=== PATIENT | male | born 1960 | race Caucasian/White ===

== ENCOUNTER → 2016-06-24 | Outpatient (CLI) | payer OTHER ==
[~2016-06-24] MED LIST: BACTRIM DS TABL1 TA2 PO; CLARITHROMYCIN500 MG PO; CLINDAMYCIN HC300 MG PO; NO MEDICATIONS; PERCOCET 5-3251 TAB PO
[2016-06-24 12:10] LABS: BASOPHIL# 0.1 X10e3 (0-0.3); BASOPHIL% 0.8 % (0-2.5); EOSINOPHIL# 0.2 X10e3 (0-0.7); EOSINOPHIL% 1.8 % (0.0-7.0); HEMATOCRIT 31.2 % (38.0-50.0); HEMOGLOBIN 10.8 gm/dL (13.0-16.0); LYMPHOCYTE# 0.9 X10e3 (1.0-3.5); LYMPHOCYTE% 9.9 % (17.0-45.0); MEAN CELL VOLUME 104.3 FL (83-96); MEAN CORPUSCULAR HEMOGLOBIN 36.3 PG (28-34); MEAN CORPUSCULAR HGB CONC 34.8 g/dL (30-36); MEAN PLATELET VOLUME 6.4 FL (6.5-11.5); MONOCYTE# 1.2 X10e3 (0-1.0); MONOCYTE% 12.6 % (3.0-12.0); NEUTROPHIL# 6.8 X10e3 (1.5-7.1); NEUTROPHIL% 74.9 % (40-75); PLATELET COUNT 170 X10e3 (140-420); RED BLOOD COUNT 2.99 X10e (3.90-5.60); RED CELL DISTRIBUTION WIDTH 14.7 % (11.0-15.5); WHITE BLOOD COUNT 9.1 X10e3 (4.0-10.5)
[2016-06-24 12:11] LABS: DIFF IND NO
[2016-06-24 12:21] LABS: INR 1.4; PROTHROMBIN TIME (PATIENT) 14.5 SECONDS (9.6-11.5)
[2016-06-24 13:13] LABS: ALBUMIN SERUM 2.1 g/dL (3.5-5.0); ALKALINE PHOSPHATASE 141 U/L (32-92); ALT (SGPT) 25 U/L (10-40); AST (SGOT) 45 U/L (10-42); BILIRUBIN,TOTAL 7.1 mg/dL (0.2-2.0); BLOOD UREA NITROGEN 8 mg/dL (9-23); BUN/CREATININE RATIO 11.42; CALCIUM SERUM 8.2 mg/dL (8.4-10.2); CARBON DIOXIDE 31 mmol/L (22-31); CHLORIDE 90 mmol/L (100-111); CREATININE SERUM 0.7 mg/dL (0.6-1.4); GLOM FILT RATE Estimated ABOVE60 mL/min (>60); GLUCOSE FASTING 255 mg/dL (70-110); POTASSIUM 3.9 mmol/L (3.5-5.1); SODIUM 127 mmol/L (135-145)
== END | disposition home or self-care (01) ==
LOC: CLAB 11:19
PROVIDERS: Internal Medicine
DX: K74.60 Unspecified cirrhosis of liver (principal)
CPT/HCPCS: 80053; 82105; 85025; 85610

== ENCOUNTER → 2016-07-13 | Outpatient (CLI) | payer OTHER ==
[2016-07-13 10:31] LABS: INR 1.5; PROTHROMBIN TIME (PATIENT) 16.8 SECONDS (9.5-12.4)
[2016-07-13 10:54] LABS: ALBUMIN SERUM 2.1 g/dL (3.5-5.0); BILIRUBIN,TOTAL 4.4 mg/dL (0.2-2.0); BUN/CREATININE RATIO 15.71; CALCIUM SERUM 8.3 mg/dL (8.4-10.2); CREATININE SERUM 0.7 mg/dL (0.6-1.4); GLOM FILT RATE Estimated 106.3 mL/min (>60); PROTEIN TOTAL SERUM 6.1 g/dL (6.0-8.3)
== END | disposition home or self-care (01) ==
LOC: SLAB 10:01
PROVIDERS: Internal Medicine
DX: K70.31 Alcoholic cirrhosis of liver with ascites (principal)
CPT/HCPCS: 36415; 80053; 85610

== ENCOUNTER → 2016-07-25 | Outpatient (CLI) | payer OTHER ==
[2016-07-25 10:49] LABS: BASOPHIL# 0.1 X10e3 (0-0.3); EOSINOPHIL# 0.2 X10e3 (0-0.7); EOSINOPHIL% 2.2 % (0.0-7.0); LYMPHOCYTE# 0.9 X10e3 (1.0-3.5); LYMPHOCYTE% 11.9 % (17.0-45.0); MEAN CELL VOLUME 104.1 FL (83-96); MEAN CORPUSCULAR HEMOGLOBIN 36.8 PG (28-34); MEAN CORPUSCULAR HGB CONC 35.4 g/dL (30-36); MEAN PLATELET VOLUME 6.2 FL (6.5-11.5); MONOCYTE# 1.1 X10e3 (0-1.0); MONOCYTE% 14.2 % (3.0-12.0); NEUTROPHIL# 5.4 X10e3 (1.5-7.1); NEUTROPHIL% 70.7 % (40-75); PLATELET COUNT 170 X10e3 (140-420); RED BLOOD COUNT 2.98 X10e (3.90-5.60); RED CELL DISTRIBUTION WIDTH 13.2 % (11.0-15.5); WHITE BLOOD COUNT 7.7 X10e3 (4.0-10.5)
[2016-07-25 10:53] LABS: DIFF IND NO
[2016-07-25 11:06] LABS: INR 1.6
[2016-07-25 11:13] LABS: BILIRUBIN,TOTAL 4.3 mg/dL (0.2-2.0); BUN/CREATININE RATIO 16.25; CALCIUM SERUM 8.5 mg/dL (8.4-10.2); CREATININE SERUM 0.8 mg/dL (0.6-1.4); GLOM FILT RATE Estimated 100.6 mL/min (>60); POTASSIUM 4.4 mmol/L (3.5-5.1)
== END | disposition home or self-care (01) ==
LOC: SLAB 10:39
PROVIDERS: Internal Medicine
DX: K70.31 Alcoholic cirrhosis of liver with ascites (principal)
CPT/HCPCS: 36415; 80053; 85025; 85610

== ENCOUNTER → 2016-08-12 | Outpatient (CLI) | payer OTHER ==
[2016-08-12 10:08] LABS: INR 1.6; PROTHROMBIN TIME (PATIENT) 17.7 SECONDS (9.5-12.4)
[2016-08-12 10:13] LABS: BASOPHIL% 0.6 % (0-2.5); EOSINOPHIL# 0.1 X10e3 (0-0.7); EOSINOPHIL% 1.6 % (0.0-7.0); HEMATOCRIT 30.5 % (38.0-50.0); HEMOGLOBIN 10.7 gm/dL (13.0-16.0); LYMPHOCYTE# 0.8 X10e3 (1.0-3.5); LYMPHOCYTE% 9.2 % (17.0-45.0); MEAN CELL VOLUME 102.2 FL (83-96); MEAN CORPUSCULAR HEMOGLOBIN 35.8 PG (28-34); MEAN CORPUSCULAR HGB CONC 35.1 g/dL (30-36); MEAN PLATELET VOLUME 6.4 FL (6.5-11.5); MONOCYTE# 0.9 X10e3 (0-1.0); MONOCYTE% 10.6 % (3.0-12.0); NEUTROPHIL# 6.4 X10e3 (1.5-7.1); PLATELET COUNT 161 X10e3 (140-420); RED BLOOD COUNT 2.99 X10e (3.90-5.60); RED CELL DISTRIBUTION WIDTH 13.8 % (11.0-15.5); WHITE BLOOD COUNT 8.2 X10e3 (4.0-10.5)
[2016-08-12 10:16] LABS: BILIRUBIN,TOTAL 3.8 mg/dL (0.2-2.0); BUN/CREATININE RATIO 21.42; CALCIUM SERUM 8.4 mg/dL (8.4-10.2); CREATININE SERUM 0.7 mg/dL (0.6-1.4); GLOM FILT RATE Estimated 106.3 mL/min (>60); POTASSIUM 4.3 mmol/L (3.5-5.1); PROTEIN TOTAL SERUM 6.4 g/dL (6.0-8.3)
[2016-08-12 10:28] LABS: DIFF IND NO
== END | disposition home or self-care (01) ==
LOC: SLAB 09:26
PROVIDERS: Internal Medicine
DX: K74.60 Unspecified cirrhosis of liver (principal); E87.1 Hypo-osmolality and hyponatremia
CPT/HCPCS: 80053; 85025; 85610

== ENCOUNTER → 2016-10-10 | Outpatient (CLI) | payer OTHER ==
[2016-10-10 10:30] LABS: HEMOGLOBIN 10.1 gm/dL (13.0-16.0); MEAN CELL VOLUME 99.8 FL (83-96); MEAN CORPUSCULAR HEMOGLOBIN 34.7 PG (28-34); MEAN CORPUSCULAR HGB CONC 34.7 g/dL (30-36); MEAN PLATELET VOLUME 6.5 FL (6.5-11.5); RED BLOOD COUNT 2.91 X10e (3.90-5.60); RED CELL DISTRIBUTION WIDTH 14.5 % (11.0-15.5); WHITE BLOOD COUNT 6.9 X10e3 (4.0-10.5)
[2016-10-10 10:33] LABS: INR 1.5; PROTHROMBIN TIME (PATIENT) 16.9 SECONDS (9.5-12.4)
[2016-10-10 10:52] LABS: ALBUMIN SERUM 2.6 g/dL (3.5-5.0); ALKALINE PHOSPHATASE 116 U/L (32-92); ALT (SGPT) 25 U/L (10-40); AST (SGOT) 43 U/L (10-42); BILIRUBIN,TOTAL 3.8 mg/dL (0.2-2.0); BLOOD UREA NITROGEN 16 mg/dL (9-23); CALCIUM SERUM 8.9 mg/dL (8.4-10.2); CARBON DIOXIDE 28 mmol/L (22-31); CHLORIDE 90 mmol/L (100-111); CREATININE SERUM 0.8 mg/dL (0.6-1.4); GLOM FILT RATE Estimated 100.6 mL/min (>60); GLUCOSE FASTING 199 mg/dL (70-110); POTASSIUM 4.2 mmol/L (3.5-5.1); PROTEIN TOTAL SERUM 6.8 g/dL (6.0-8.3)
[2016-10-10 11:05] LABS: ALCOHOL BLOOD <5 mg/dL (0); SODIUM 123 mmol/L (135-145)
== END | disposition home or self-care (01) ==
LOC: SLAB 10:06
PROVIDERS: Internal Medicine
DX: Z01.812 Encounter for preprocedural laboratory examination (principal); K70.30 Alcoholic cirrhosis of liver without ascites; K72.90 Hepatic failure, unspecified without coma
CPT/HCPCS: 36415; 80053; 85027; 85610; G0480